=== PATIENT | female | born 1990 | race Two or more races ===

== ENCOUNTER 2017-12-06 10:49 | Outpatient (CLI) | payer MEDICAID ==
[2017-12-06 11:31] LABS: APPEARANCE,URINE CLOUDY; BILIRUBIN,URINE NEGATIVE (NEGATIVE); COLOR,URINE YELLOW; GLUCOSE, URINE >=500 mg/dL (NEGATIVE); KETONES,URINE NEGATIVE (NEGATIVE); LEUKOCYTE ESTERASE,URINE SMALL (NEGATIVE); NITRITE,URINE NEGATIVE (NEGATIVE); PROTEIN,URINE 30 mg/dL (NEGATIVE); URINE SPECIFIC GRAVITY 1.021
[2017-12-06 12:00] LABS: URINE AMPHETAMINES SCREEN NEGATIVE; URINE BARBITURATES SCREEN NEGATIVE; URINE BENZODIAZEPINES SCREEN NEGATIVE; URINE COCAINE SCREEN NEGATIVE; URINE MARIJUANA (THC) SCREEN NEGATIVE; URINE METHADONE SCREEN NEGATIVE; URINE PHENCYCLIDINE SCREEN NEGATIVE
--- NOTE | 2017-12-06 12:34 | Non Stress Test Report ---
Non Stress Test Datetime Report Generated by CPN: 12/06/2017 12:34 DEMOGRAPHIC EGA NST: 36.4 INDICATION Indication for Study: Ordered by Provider MONITORING Monitor Explained: Monitor Explained; Test Explained; Patient Verbalized Understanding Time on Monitor: 12/06/2017 11:06 Time off Monitor: 12/06/2017 12:27 NST Duration: 81 NST INTERVENTIONS NST Interventions: PO Hydration; Reposition Patient Physician Notified NST: C.Giordano, CNM BABY A: [id number] BABY A Movement : Present Contraction Frequency : irregular FHR Baseline : 140 Accelerations : 15X15 Decelerations : None Variability : Moderate 6-25bpm NST Review: Meets Criteria for Reactive NST NST Review and Verified By : Love Manjarrez RNC NST Results: Reactive NST REPORT Report Trigger: Send Report
== END 2017-12-06 11:34 | disposition home or self-care (01) ==
LOC: LC 10:49
PROVIDERS: ATTEND Student in an Organized Health Care Education/Training Program
PROC: 4A1HXCZ Monitoring of Products of Conception, Cardiac Rate, External Approach (ICD-10-PCS; principal; 2017-12-06)
DX: O99.283 Endocrine, nutritional and metabolic diseases complicating pregnancy, third trimester (principal); E86.0 Dehydration; Z3A.36 36 weeks gestation of pregnancy
CPT/HCPCS: 59025; 80307; 81001

== ENCOUNTER 2017-12-23 05:02 | Inpatient (IN) | payer MEDICAID, OTHER ==
[2017-12-22 13:28] LABS: ABSOLUTE EOSINOPHILS # (AUTO) 0.3 10^3/uL (0.0-0.6); ABSOLUTE LYMPHOCYTES (AUTO) 2.5 10^3/uL (0.5-4.7); ABSOLUTE MONOCYTES (AUTO) 0.5 10^3/uL (0.1-1.4); ABSOLUTE NEUT (AUTO) 5.6 10^3/uL (1.7-8.2); BASOPHILS % (AUTO) 0.5 % (0-2); EOSINOPHILS % (AUTO) 2.9 % (0-6); HEMATOCRIT 32.2 % (36.0-47.0); HEMOGLOBIN 10.8 g/dL (12.0-15.5); LYMPHOCYTES % (AUTO) 28.3 % (13-45); MEAN CORPUSCULAR HEMOGLOBIN 24.9 pg (27.0-33.4); MEAN CORPUSCULAR HGB CONC 33.5 g/dL (32.0-36.0); MEAN CORPUSCULAR VOLUME 74 fl (80-97); MONOCYTES % (AUTO) 5.6 % (3-13); PLATELET COUNT 206 10^3/uL (150-450); RED BLOOD COUNT 4.33 10^6/uL (3.72-5.28); RED CELL DISTRIBUTION WIDTH 20.7 % (11.5-14.0); SEGMENTED NEUTROPHILS % (AUTO) 62.7 % (42-78); TOTAL CELLS COUNTED % (AUTO) 100 %; WHITE BLOOD COUNT 8.9 10^3/uL (4.0-10.5)
[2017-12-22 13:38] LABS: APPEARANCE,URINE SLIGHTLY-CLOUDY; BILIRUBIN,URINE NEGATIVE (NEGATIVE); COLOR,URINE YELLOW; GLUCOSE, URINE 150 mg/dL (NEGATIVE); KETONES,URINE TRACE mg/dL (NEGATIVE); LEUKOCYTE ESTERASE,URINE NEGATIVE (NEGATIVE); NITRITE,URINE NEGATIVE (NEGATIVE); PROTEIN,URINE 100 mg/dL (NEGATIVE)
[2017-12-22 13:57] LABS: URINE AMPHETAMINES SCREEN NEGATIVE; URINE BARBITURATES SCREEN NEGATIVE; URINE BENZODIAZEPINES SCREEN NEGATIVE; URINE COCAINE SCREEN NEGATIVE; URINE MARIJUANA (THC) SCREEN NEGATIVE; URINE METHADONE SCREEN NEGATIVE; URINE PHENCYCLIDINE SCREEN NEGATIVE
[~2017-12-23 05:02] MED LIST: AZITHROMYCIN 500 MG in DEXTROSE 5%-WATER 250 ML IV PRN; CEFAZOLIN 1 GM/D5W RTU 1 GM/50 ML RTUPB IV PRN; RINGERS SOLUTION,LACTATED 1,000 ML IV PRN
[2017-12-23] MEDS ORDERED: KETOROLAC TROMETHAMINE INJ/PF 30 MG/1 ML SDV ONE (07:24)
[2017-12-23] MEDS ORDERED: OXYTOCIN 10 UNIT/ML VIAL ONE (07:24)
[2017-12-23] MEDS ORDERED: BUPIVACAINE HCL/DEX-WATER/PF 15 MG/2 ML AMPULE ONE (07:24)
[2017-12-23] MEDS ORDERED: OXYTOCIN/NORMAL SALINE 20 UNIT/1,000 ML RTUINJ ONE (07:25)
[2017-12-23] MEDS ORDERED: MIDAZOLAM 2 MG/2 ML INJ ONE (07:25)
[2017-12-23] MEDS ORDERED: EPHEDRINE SULFATE INJ 50 MG/1 ML AMPULE ONE (07:25)
[2017-12-23] MEDS ORDERED: ACETAMINOPHEN 1,000 MG/100 ML RTUPB IV ONE (07:25)
[2017-12-23] MEDS ORDERED: FENTANYL CITRATE INJ/PF 100 MCG/2 ML AMPUL ONE ×2 (07:25→08:25)
[2017-12-23] MEDS ORDERED: DIPH/PERTUSS(ACELL)/TETANUS VAC/PF 0.5 ML SYR (>=10YO) IM PRN (08:53)
[2017-12-23] MEDS ORDERED: SIMETHICONE 80 MG TAB.CHEW PO PRN (08:53)
[2017-12-23] MEDS ORDERED: OXYTOCIN/NORMAL SALINE 20 UNIT/1,000 ML RTUINJ IV PRN (08:53)
[2017-12-23] MEDS ORDERED: MEASLES,MUMPS&RUBELLA VACC/PF 0.5 ML VIAL SUBCUT PRN (08:53)
[2017-12-23] MEDS ORDERED: ACETAMINOPHEN 325 MG TABLET PO PRN (08:53)
[2017-12-23] MEDS ORDERED: PROMETHAZINE HCL INJ 25 MG/1 ML VIAL IV PRN ×3 (08:53→09:50)
--- NOTE | 2017-12-23 08:53 | PDOC DELIVERY SUMMARY ---
Delivery Summary - Maternal Hx : IV Hx # Term Pregnancies: 2 WILDER: 12/30/17 Gestational Age: 39 Risk Factors: Gestational Diabetes Ruptured Membranes: AROM Time of Rupture: 08:23 Fluids: Clear - Delivery Labor: Not In Labor Presentation: Vertex Heart Rate Monitoring: Done Pre-Operatively Support Person Present: Yes Location: OR : Scheduled Placenta: Within Normal Limits Nuchal Cord: No Delivery of Placenta Date: 12/23/17 Delivery of Placenta Time: 08:27 - Medications Type of Anesthesia:: GA - Infant Assess and Care Baby 1 Male Delivery of Infant Date: 12/23/17 Delivery of Infant Time: 08:26 at 1 minute: 7 at 5 minutes: 9 Preprinted Number On Band: [id number] Infant Skin to Skin: No To Nursery At: 08:32 Mode of Transport: Bassinet - Delivery Personnel Greeting Card Editor: SAÚL LATHAM Nursebalaji RN: NATO BENEDICT RN: EVE PICKERING MD: TOSHA HORTA
--- NOTE | 2017-12-23 09:00 | OPERATIVE REPORT E ---
Operative Report NAME: LUIS HURST : 1990 AGE: 27Y DATE OF SURGERY: 12/23/2017 ROOM: 227 PREOPERATIVE DIAGNOSIS: IUP at term, repeat . POSTOPERATIVE DIAGNOSIS: IUP at term, repeat . PROCEDURE: Repeat low-transverse . SURGEON: Amanda HORTA M.D. ANESTHESIA: General. TISSUE REMOVED: Placenta. PROCEDURE: The patient was placed in a supine position, rolled on her right side, prepped and draped in a sterile fashion. A Pfannenstiel incision was made through an existing Pfannenstiel eschar. The incision was extended through subcutaneous tissue and fascia with sharp dissection. The fascia was sharply divided in the midline and multiple adhesions from the omentum were encountered upon entering the fascia. The fascia was carefully dissected and the omentum was carefully dissected away from the incision until the uterus could be viewed. The uterus was nicked in the midline and extended bilaterally. The was then delivered via Kiwi through the uterine abdominal incision. Nose and mouth were suctioned with bulb syringe. Baby was passed from the table after clamping the cord. Placenta was manually extracted. The uterus was closed in 2 layers, the first a running stitch of 0 Vicryl and the second a Lembert stitch imbricating the first layer. Hemostasis was noted. The fascia was closed with 0 Vicryl and subcu was closed with interrupted 0 plain. The incision was then closed using subcu absorbable cb. The infant weighed 12 pounds, Apgars of 7 and 9, and was a male. DICTATING PHYSICIAN: Amanda HORTA M.D. [id number] PHY#: [id number] ID: [id number] JOB#: [id number] ACCT: [id number] cc:Amanda HORTA M.D. >
[2017-12-23] MEDS: FENTANYL CITRATE INJ/PF 100 MCG/2 ML AMPUL ONE ×2 (09:11→09:16)
[2017-12-23] MEDS: MORPHINE SULFATE 10 MG/ML INJ ONE ×3 (09:26→09:56)
[2017-12-23] MEDS ORDERED: MEPERIDINE HCL/PF INJ 25 MG/1 ML DISP.SYRIN IV PRN (09:50)
[2017-12-23] MEDS ORDERED: ONDANSETRON HCL INJ/PF 4 MG/2 ML SDV IV PRN (09:50)
[2017-12-23] MEDS ORDERED: OXYCODONE-ACETAMINOPHEN 5-325 MG TABLET PO PRN ×2 (09:50)
[2017-12-23] MEDS ORDERED: DIPHENHYDRAMINE HCL 50 MG/ML VIAL IV PRN (09:50)
[2017-12-23] MEDS ORDERED: MORPHINE SULFATE 10 MG/ML INJ IV PRN (09:50)
[2017-12-23] MEDS ORDERED: FENTANYL CITRATE INJ/PF 100 MCG/2 ML AMPUL IV PRN ×3 (09:50)
[2017-12-23 10:32] LABS: ABSOLUTE EOSINOPHILS # (AUTO) 0.2 10^3/uL (0.0-0.6); ABSOLUTE MONOCYTES (AUTO) 0.5 10^3/uL (0.1-1.4); ABSOLUTE NEUT (AUTO) 7.8 10^3/uL (1.7-8.2); BASOPHILS % (AUTO) 0.4 % (0-2); HEMATOCRIT 28.2 % (36.0-47.0); HEMOGLOBIN 9.4 g/dL (12.0-15.5); LYMPHOCYTES % (AUTO) 18.6 % (13-45); MEAN CORPUSCULAR HEMOGLOBIN 24.8 pg (27.0-33.4); MEAN CORPUSCULAR HGB CONC 33.3 g/dL (32.0-36.0); MEAN CORPUSCULAR VOLUME 75 fl (80-97); MONOCYTES % (AUTO) 4.9 % (3-13); PLATELET COUNT 188 10^3/uL (150-450); RED BLOOD COUNT 3.78 10^6/uL (3.72-5.28); RED CELL DISTRIBUTION WIDTH 20.3 % (11.5-14.0); SEGMENTED NEUTROPHILS % (AUTO) 74.1 % (42-78); TOTAL CELLS COUNTED % (AUTO) 100 %; WHITE BLOOD COUNT 10.5 10^3/uL (4.0-10.5)
[2017-12-23] MEDS ORDERED: FLUTICASONE NASAL SPRAY 50 MCG/SPRY 120 SPRAY/16 GM NAREB PRN (11:48)
[2017-12-23] MEDS: IBUPROFEN 800 MG TABLET PO SCH ×3 (12:49→23:39)
[2017-12-23] MEDS: DOCUSATE SODIUM 100 MG CAPSULE PO SCH ×2 (12:49→17:44)
[2017-12-23] MEDS: PRENATAL VITAMIN W DHA CAPSULE PO SCH (12:49)
[2017-12-23] MEDS ORDERED: HYDROMORPHONE HCL INJ/PF 2 MG/ML AMPULE ONE (13:08)
[2017-12-23] MEDS: LACTATED RINGERS 1000 ML IV PRN ×2 (14:47→23:39)
[2017-12-23] MEDS ORDERED: PHENYLEPHRINE HCL INJ/PF 10 MG/1 ML SDV ONE (15:26)
[2017-12-23] MEDS ORDERED: SUCCINYLCHOLINE CHLORIDE INJ 200 MG/10 ML VIAL ONE (15:26)
[2017-12-23] MEDS ORDERED: LIDOCAINE 2% INJ-PF (20 MG/ML) 2 ML AMPUL ONE (15:26)
[2017-12-23] MEDS: OXYCODONE-ACETAMINOPHEN 5-325 MG TABLET PO PRN ×2 (17:45→21:38)
[2017-12-24] MEDS: OXYCODONE-ACETAMINOPHEN 5-325 MG TABLET PO PRN ×4 (03:15→22:27)
[2017-12-24] MEDS: IBUPROFEN 800 MG TABLET PO SCH ×3 (06:25→18:25)
[2017-12-24 06:39] LABS: HEMATOCRIT 24.1 % (36.0-47.0); HEMOGLOBIN 8.1 g/dL (12.0-15.5); MEAN CORPUSCULAR HEMOGLOBIN 25.2 pg (27.0-33.4); MEAN CORPUSCULAR HGB CONC 33.7 g/dL (32.0-36.0); MEAN CORPUSCULAR VOLUME 75 fl (80-97); PLATELET COUNT 169 10^3/uL (150-450); RED BLOOD COUNT 3.21 10^6/uL (3.72-5.28); RED CELL DISTRIBUTION WIDTH 20.5 % (11.5-14.0); WHITE BLOOD COUNT 9.1 10^3/uL (4.0-10.5)
[2017-12-24] MEDS: DOCUSATE SODIUM 100 MG CAPSULE PO SCH ×2 (09:05→18:25)
[2017-12-24] MEDS: PRENATAL VITAMIN W DHA CAPSULE PO SCH (09:05)
--- NOTE | 2017-12-24 11:41 | PDOC PROGRESS REPORT ---
Subjective-OB Progress Note for:: 12/24/17 Physical Exam (OB) Vital Signs: Temp Pulse Resp BP Pulse Ox 98.0 F 85 18 125/84 96 12/24/17 08:40 12/24/17 08:40 12/24/17 08:40 12/24/17 08:40 12/24/17 08:40 Intake & Output 12/23/17 12/24/17 12/25/17 06:59 06:59 06:59 Intake Total 3418 Output Total 3640 Balance -222 Weight 146.4 kg 149.6 kg - Dressing Removed: No - CD & I Incision: Draining - Lochia Lochia Amount: Small 10-25 ml Lochia Color: Rubra/Red - Abdomen Description: Tender, Soft Hernia Present: No Bowel Sounds: Normoactive Flatus Presence: Present Stool: No Fundal Description: Firm, Midline Fundal Height: u/u - u/2 Objective-Diagnostic Laboratory: 12/24/17 06:28 12/24/17 06:28 WBC 9.1 RBC 3.21 L Hgb 8.1 L Hct 24.1 L MCV 75 L MCH 25.2 L MCHC 33.7 RDW 20.5 H Plt Count 169
[2017-12-25] MEDS: IBUPROFEN 800 MG TABLET PO SCH ×5 (03:06→23:45)
[2017-12-25] MEDS: OXYCODONE-ACETAMINOPHEN 5-325 MG TABLET PO PRN ×2 (07:23→21:35)
[2017-12-25] MEDS: PRENATAL VITAMIN W DHA CAPSULE PO SCH (08:54)
[2017-12-25] MEDS: DOCUSATE SODIUM 100 MG CAPSULE PO SCH ×2 (08:54→17:08)
--- NOTE | 2017-12-25 13:18 | PDOC PROGRESS REPORT ---
Subjective-OB Progress Note for:: 12/25/17 Subjective: Request another night here as baby under bili light and . Physical Exam (OB) Vital Signs: Temp Pulse Resp BP Pulse Ox 97.9 F 81 16 129/60 H 98 12/25/17 11:59 12/25/17 11:59 12/25/17 11:59 12/25/17 11:59 12/25/17 11:59 Intake & Output 12/24/17 12/25/17 12/26/17 06:59 06:59 06:59 Intake Total 3418 Output Total 3640 Balance -222 Weight 149.6 kg - Dressing Removed: Yes Incision: Well Approximated Closure Type: Surgical Glue - Lochia Lochia Amount: Scant < 10 ml Lochia Color: Rubra/Red - Abdomen Description: Soft Hernia Present: No Bowel Sounds: Normoactive Flatus Presence: Present Stool: Yes Fundal Description: Firm, Midline Fundal Height: u/u - u/2 Objective-Diagnostic Laboratory: 12/24/17 06:28
[2017-12-26] MEDS: IBUPROFEN 800 MG TABLET PO SCH ×2 (05:19→13:09)
[2017-12-26] MEDS: PRENATAL VITAMIN W DHA CAPSULE PO SCH (09:59)
[2017-12-26] MEDS: DOCUSATE SODIUM 100 MG CAPSULE PO SCH (09:59)
--- NOTE | 2017-12-26 11:15 | PDOC PROGRESS REPORT ---
Subjective-OB Progress Note for:: 12/26/17 Subjective: Ready for discharge. Will nest as baby on bili light. Physical Exam (OB) Vital Signs: Temp Pulse Resp BP Pulse Ox 97.8 F 69 18 119/77 100 12/26/17 07:42 12/26/17 07:42 12/26/17 07:42 12/26/17 07:42 12/26/17 07:42 Intake & Output 12/25/17 12/26/17 12/27/17 06:59 06:59 06:59 Intake Total 650 Balance 650 - PIH/Pre-Eclampsia Headache: Absent Epigastric Pain: No Visual Changes: No - Dressing Removed: No - pt refused fundal massage and incision check Incision: Well Approximated Closure Type: Surgical Glue - Lochia Lochia Amount: Scant < 10 ml Lochia Color: Rubra/Red - Abdomen Description: Tender, Round Hernia Present: No Bowel Sounds: Normoactive Flatus Presence: Present Stool: Yes Fundal Description: Firm, Midline Fundal Height: u/u - u/2 Objective-Diagnostic Laboratory: 12/24/17 06:28
--- NOTE | 2017-12-26 11:22 | PDOC DISCHARGE SUMMARY ---
Final Diagnosis Discharge Date: 12/26/17 - Final Diagnosis (1) Anemia Is this a current diagnosis for this admission?: Yes (2) Delivery by elective caesarean section Is this a current diagnosis for this admission?: Yes (3) GDM (gestational diabetes mellitus) Is this a current diagnosis for this admission?: Yes (4) History of depression Is this a current diagnosis for this admission?: Yes (5) Obesity Is this a current diagnosis for this admission?: Yes (6) Positive GBS test Is this a current diagnosis for this admission?: Yes (7) Is this a current diagnosis for this admission?: Yes Discharge Data - Discharge Medication Prescriptions: Oxycodone HCl/Acetaminophen [Percocet 5-325 mg Tablet] 2 tab PO Q4HP PRN #20 tablet PRN Reason: Ferrous Sulfate [Iron] 325 mg PO QAM #60 tablet Ibuprofen [Motrin 800 mg Tablet] 800 mg PO Q6 #30 tablet Home Medications: No122/Iron/Folic Acid [ Multi Tablet] 1 each PO DAILY 12/06/17 Ferrous Sulfate [Iron] 325 mg PO QAM #60 tablet 12/26/17 Ibuprofen [Motrin 800 mg Tablet] 800 mg PO Q6 #30 tablet 12/26/17 Oxycodone HCl/Acetaminophen [Percocet 5-325 mg Tablet] 2 tab PO Q4HP PRN #20 tablet 12/26/17 Gestational Age: 39 wks Reason(s) for Admission: Ceasarean Section-Repeat, Gestional Diabetes Procedures: Ultrasound Intrapartum Procedure(s): : Low Cervical, Transverse - Data Male at 1 minute: 7 at 5 minutes: 9 Weight: 5.443 kg Home with Mother: No Complications: Yes - Jaundice - Diagnosis Test Laboratory: Temp Pulse Resp BP Pulse Ox 97.8 F 69 18 119/77 100 12/26/17 07:42 12/26/17 07:42 12/26/17 07:42 12/26/17 07:42 12/26/17 07:42 12/22/17 12/22/17 12/23/17 12:20 12:25 10:13 RBC 4.33 3.78 Hgb 10.8 L 9.4 L Hct 32.2 L 28.2 L Urine Opiates Screen NEGATIVE 12/24/17 06:28 RBC 3.21 L Hgb 8.1 L Hct 24.1 L Urine Opiates Screen - Discharge information/Instructions Discharge Activity: Activity As Tolerated, Balance Activity w/Rest, No Lifting Over 10 Pounds, No Lifting/Push/Pulling, Non-Ambulatory Child, Pelvic Rest, Slowly Increase Activity, No tub bath Discharge Diet: Regular Disposition: HOME, SELF-CARE Follow up with: [facility] in: 1, Weeks
[2017-12-26 12:32] VITALS: BP 124/67
== END 2017-12-26 13:00 | disposition home or self-care (01) | DRG 766 ==
LOC: 2S 05:02
PROVIDERS: ADMIT Obstetrics & Gynecology Gynecology; ATTEND Obstetrics & Gynecology Gynecology
PROC: 10D00Z1 Extraction of Products of Conception, Low, Open Approach (ICD-10-PCS; principal; 2017-12-23 07:45)
DX: O34.211 Maternal care for low transverse scar from previous cesarean delivery (principal); N85.8 Other specified noninflammatory disorders of uterus; O24.425 Gestational diabetes mellitus in childbirth, controlled by oral hypoglycemic drugs; O99.214 Obesity complicating childbirth; E66.01 Morbid (severe) obesity due to excess calories; O99.02 Anemia complicating childbirth; O99.824 Streptococcus B carrier state complicating childbirth; Z68.37 Body mass index [BMI] 37.0-37.9, adult; Z37.0 Single live birth; Z3A.39 39 weeks gestation of pregnancy
CPT/HCPCS: 1961; 36415; 59025; 80307; 81001; 82962; 85025; 85027; 86850; 86900; 86901; 88307; 94799; J0131; J0330; J0456; J1170; J1885; J2250; J2270; J2370; J2405; J2590; J3010; J3490; J7060; J7120

== ENCOUNTER 2018-03-20 20:45 | Emergency (ER) | payer MEDICAID ==
[2018-03-20 21:25] LABS: ABSOLUTE BASOPHILS # (AUTO) 0.1 10^3/uL (0.0-0.2); ABSOLUTE EOSINOPHILS # (AUTO) 0.2 10^3/uL (0.0-0.6); ABSOLUTE LYMPHOCYTES (AUTO) 3.4 10^3/uL (0.5-4.7); ABSOLUTE MONOCYTES (AUTO) 0.6 10^3/uL (0.1-1.4); ABSOLUTE NEUT (AUTO) 5.4 10^3/uL (1.7-8.2); BASOPHILS % (AUTO) 0.7 % (0-2); EOSINOPHILS % (AUTO) 2.5 % (0-6); HEMATOCRIT 36.8 % (36.0-47.0); HEMOGLOBIN 12.1 g/dL (12.0-15.5); LYMPHOCYTES % (AUTO) 35.4 % (13-45); MEAN CORPUSCULAR HEMOGLOBIN 23.5 pg (27.0-33.4); MEAN CORPUSCULAR HGB CONC 32.8 g/dL (32.0-36.0); MEAN CORPUSCULAR VOLUME 72 fl (80-97); MONOCYTES % (AUTO) 6.2 % (3-13); PLATELET COUNT 378 10^3/uL (150-450); RED BLOOD COUNT 5.15 10^6/uL (3.72-5.28); RED CELL DISTRIBUTION WIDTH 17.2 % (11.5-14.0); SEGMENTED NEUTROPHILS % (AUTO) 55.2 % (42-78); TOTAL CELLS COUNTED % (AUTO) 100 %; WHITE BLOOD COUNT 9.7 10^3/uL (4.0-10.5)
[2018-03-20 21:36] LABS: ALANINE AMINOTRANSFERASE 33 U/L (9-52); ALBUMIN 4.5 g/dL (3.5-5.0); ALKALINE PHOSPHATASE 146 U/L (38-126); ANION GAP 15 (5-19); ASPARTATE AMINO TRANSFERASE 49 U/L (14-36); BILIRUBIN,DIRECT 0.4 mg/dL (0.0-0.4); BILIRUBIN,TOTAL 0.7 mg/dL (0.2-1.3); BLOOD UREA NITROGEN 8 mg/dL (7-20); CALCIUM 9.2 mg/dL (8.4-10.2); CARBON DIOXIDE 20 mmol/L (22-30); CHLORIDE 102 mmol/L (98-107); GLUCOSE 359 mg/dL (75-110); LIPASE 140.2 U/L (23-300); POTASSIUM 4.3 mmol/L (3.6-5.0); SODIUM 137.2 mmol/L (137-145); TOTAL PROTEIN 8.3 g/dL (6.3-8.2)
[2018-03-20 21:40] LABS: APPEARANCE,URINE SLIGHTLY-CLOUDY; BILIRUBIN,URINE NEGATIVE (NEGATIVE); COLOR,URINE YELLOW; GLUCOSE, URINE >=500 mg/dL (NEGATIVE); KETONES,URINE TRACE mg/dL (NEGATIVE); LEUKOCYTE ESTERASE,URINE MODERATE (NEGATIVE); NITRITE,URINE NEGATIVE (NEGATIVE); PROTEIN,URINE NEGATIVE (NEGATIVE); URINE SPECIFIC GRAVITY 1.037; UROBILINOGEN,URINE NEGATIVE mg/dL (<2.0)
[2018-03-20] MEDS ORDERED: KETOROLAC TROMETHAMINE INJ/PF 30 MG/1 ML SDV IV ONE (22:04)
[2018-03-20] MEDS ORDERED: CEPHALEXIN 500 MG CAPSULE PO ONE (22:04)
[2018-03-20] MEDS ORDERED: GLIPIZIDE 5 MG TABLET PO ONE (22:25)
[2018-03-20] MEDS ORDERED: METFORMIN HCL 500 MG TABLET PO ONE (22:25)
--- NOTE | 2018-03-20 22:37 | ER Document Report ---
ED General - General Chief Complaint: Abdominal Pain Stated Complaint: LOWER ABDOMINAL PAIN, BACK PAIN Time Seen by Provider: 03/20/18 21:03 Notes: Patient is a 28-year old female with a past medical history of morbid obesity who presents with multiple complaints that she states are unrelated but she would like addressed during her emergency department visit today. Her first complaint is of intermittent lower abdominal discomfort that she has had since having her 2 months ago. Nothing is new or different about this pain today. She describes as an aching, cramping pain most notable when she picks her son up or tries to lift things. She currently denies this abdominal pain. The patient also reports that she has insomnia comes finds it difficult to sleep and is requesting something to help her sleep. The patient is also complaining of polyuria and polydipsia, states that she feels that she gets dehydrated off the and is sometimes lightheaded. She has not seen her general doctor regarding any of these concerns. She has not identified anything that seems to improve or worsen her symptoms. She denies any fever, vomiting, diarrhea, vaginal bleeding, vaginal discharge, but does note dysuria. TRAVEL OUTSIDE OF THE [place] IN LAST 30 DAYS: No - Related Data Allergies/Adverse Reactions: No Known Allergies Allergy (Verified 12/22/17 11:50) Past Medical History - General Information source: Patient - Social History Smoking Status: Never Smoker Frequency of alcohol use: None Drug Abuse: None Lives with: Spouse/Significant other Family History: Reviewed & Not Pertinent Patient has suicidal ideation: No Patient has homicidal ideation: No - Past Medical History Cardiac Medical History: Reports: Hx Hypertension - gestational Denies: Hx Heart Murmur Endocrine Medical History: Denies: Hx Hyperthyroidism, Hx Hypothyroidism Renal/ Medical History: Denies: Hx Kidney Stones, Hx Peritoneal Dialysis GI Medical History: Reports: Hx Gastroesophageal Reflux Disease. Denies: Hx Hiatal Hernia, Hx Ulcer Musculoskeletal Medical History: Denies Hx Fibromyalgia Psychiatric Medical History: Reports: Hx Depression Denies: Hx Bipolar Disorder, Hx Post Traumatic Stress Disorder, Hx Schizophrenia Traumatic Medical History: Denies: Hx Fractures Infectious Medical History: Denies: Hx HIV Past Surgical History: Reports: Hx Section - x3 Review of Systems - Review of Systems Notes: Constitutional: Negative for fever. Positive for polyuria and polydipsia HENT: Negative for sore throat. Eyes: Negative for visual changes. Cardiovascular: Negative for chest pain. Respiratory: Negative for shortness of breath. Gastrointestinal: Positive for intermittent abdominal pain Genitourinary: Positive for dysuria Musculoskeletal: Negative for back pain. Skin: Negative for rash. Neurological: Negative for headaches, weakness or numbness. 10 point ROS negative except as marked above and in HPI. Physical Exam - Vital signs Vitals: Temp Pulse Resp BP Pulse Ox 98.6 F 96 16 136/79 H 98 03/20/18 20:53 03/20/18 20:53 03/20/18 20:53 03/20/18 20:53 03/20/18 20:53 Interpretation: Normal Notes: PHYSICAL EXAMINATION: GENERAL: Well-appearing, well-nourished and in no acute distress. HEAD: Atraumatic, normocephalic. EYES: Pupils equal round and reactive to light, extraocular movements intact, sclera anicteric, conjunctiva are normal. ENT: nares patent, oropharynx clear without exudates. Moderately dry mucous membranes. NECK: Normal range of motion, supple without lymphadenopathy LUNGS: Breath sounds clear to auscultation bilaterally and equal. No wheezes rales or rhonchi. HEART: Regular rate and rhythm without murmurs ABDOMEN: Soft, morbidly obese abdomen, nontender, normoactive bowel sounds. No guarding, no rebound. No masses appreciated. EXTREMITIES: Normal range of motion, no pitting or edema. No cyanosis. NEUROLOGICAL: No focal neurological deficits. Moves all extremities spontaneously and on command. PSYCH: Normal mood, normal affect. SKIN: Warm, Dry, normal turgor, no rashes or lesions noted. Course - Re-evaluation Re-evalutation: 03/20/18 22:41 Presentation hyperglycemia with associated polyuria and polydipsia. Patient was unaware that she was diabetic prior to today. There is no evidence of HHS or diabetic ketoacidosis on laboratories or based on clinical history. Patient' s vitals are within normal limits. Patient does have primary care follow-up. Patient has been started on glipizide and metformin. Patient also complained of some dysuria and lower abdominal cramping. Urinalysis is consistent with a urinary tract infection. She has no focal abdominal tenderness, rebound or guarding on exam. Abdomen is soft and benign. I do not clinically suspect an ovarian torsion, tubo-ovarian abscess, pelvic inflammatory disease, acute appendicitis or any alternative life threatening pathology. She has been started on cephalexin. At this time will discharge with return precautions and follow-up recommendations. Verbal discharge instructions given a the bedside and opportunity for questions given. Medication warnings reviewed. Patient is in agreement with this plan and has verbalized understanding of return precautions and the need for primary care follow-up in the next 24-72 hours. - Vital Signs Vital signs: Temp Pulse Resp BP Pulse Ox 98.5 F 90 18 114/66 100 03/20/18 23:04 03/20/18 23:04 03/20/18 23:04 03/20/18 23:04 03/20/18 23:04 - Laboratory Result Diagrams: 03/20/18 21:10 03/20/18 21:10 Laboratory results interpreted by me: 03/20/18 03/20/18 03/20/18 21:10 21:10 21:10 MCV 72 L MCH 23.5 L RDW 17.2 H Carbon Dioxide 20 L Creatinine 0.42 L Glucose 359 H AST 49 H Alkaline Phosphatase 146 H Total Protein 8.3 H Urine Glucose (UA) >=500 H Urine Ketones TRACE H Urine Blood LARGE H Ur Leukocyte Esterase MODERATE H Discharge - Discharge Clinical Impression: Lower abdominal pain Type 2 diabetes mellitus Qualifiers: Diabetes mellitus nursing home 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 Diabetes mellitus complication status: without complication Qualified Code(s): E11.9 - Type 2 diabetes mellitus without complications Urinary tract infection Qualifiers: Urinary tract infection type: acute cystitis Hematuria presence: without hematuria Qualified Code(s): N30.00 - Acute cystitis without hematuria Insomnia Qualifiers: Insomnia type: unspecified Qualified Code(s): G47.00 - Insomnia, unspecified Obesity Qualifiers: Obesity type: due to excess calories Obesity classification: unspecified obesity classification Serious obesity comorbidity presence: with serious comorbidity Qualified Code(s): E66.09 - Other obesity due to excess calories Condition: Good Disposition: HOME, SELF-CARE Additional Instructions: You need to followup urgently with your primary care doctor as your blood sugars were dangerously high today. You have type 2 diabetes. Your being started on metformin and glipizide to control your blood sugars but will likely require increased doses of these medications through your primary care doctor in the future. You did not have any evidence of a dangerous condition associated with these blood sugars at this time. However, it is very important that you get your blood sugars under control. Please take all of your medications exactly as directed. You should avoid foods that are high in carbohydrates and sugary foods. Losing weight will also help to better control your blood sugars. Please return to emergency department immediately if you develop weakness, persistent vomiting, confusion, or any other symptoms that are concerning to you. Your urine shows findings consistent with a urinary tract infection. Please take all the antibiotics as directed even if your symptoms have improved. Please follow-up with your primary care physician as needed. Return to emergency room if you develop fever >101F, persistent vomiting, become lethargic , have severe pain in your sides, or any other symptoms that are concerning to you. Prescriptions: Trazodone HCl 50 mg PO QHS PRN #30 tablet PRN Reason: Cephalexin Monohydrate [Keflex 500 mg Capsule] 500 mg PO Q6H 5 Days capsule Glipizide [Glipizide ER] 5 mg PO DAILY #30 tab.er.24 Metformin HCl [Glucophage 500 mg Tablet] 500 mg PO BID #60 tablet Referrals: FEDERICO JIMENEZ MD [Primary Care Provider] - Follow up tomorrow
[2018-03-20 23:08] VITALS: BP 114/66
== END 2018-03-20 23:23 | disposition home or self-care (01) ==
LOC: ER 20:45
DX: R10.30 Lower abdominal pain, unspecified (principal); E11.9 Type 2 diabetes mellitus without complications; N30.00 Acute cystitis without hematuria; E66.09 Other obesity due to excess calories; R30.0 Dysuria; G47.00 Insomnia, unspecified; Z98.890 Other specified postprocedural states
CPT/HCPCS: 99284; 96374; 36415; 87086; 83690; 85025; 81025; 80053; 81001; J3490 ×2; J1885